=== PATIENT | female | born 1950 | race Caucasian/White ===

== ENCOUNTER 2021-03-20 12:24 | Emergency (ER) | payer OTHER, MEDICARE ==
[~2021-03-20] VITALS: Ht 160 cm; Wt 98.3 kg
[2021-03-20] MEDS ORDERED: NEOMY/BACITR/POLYMYXIN OINT PACKET. TP ONE (13:45)
[2021-03-20] MEDS ORDERED: ONDANSETRON ODT 4 MG TAB.RAPDIS. PO ONE (13:45)
--- NOTE | 2021-03-20 13:58 | PHYS DOC ---
Past Medical History Past Medical History: Asthma, CAD, Diabetes-Type II, Hypertension, Hypothyroid Past Surgical History: , Knee Replacement, Other Additional Past Surgical Histo: Rotator cuff surgery Smoking Status: Never Smoker Alcohol Use: None Drug Use: None General Adult EDM: Chief Complaint: LACERATION/AVULSION HPI: HPI: 71-year-old female presents to the emergency department status post mechanical fall from standing height onto pavement. Patient was brought to the ED by her daughter in POV. Patient reports that she struck the right side of her head on the pavement she denies LOC which was corroborated by her daughter who witnessed the fall. She also reports that during the fall she attempted to catch herself with her bilateral hands which she reports are both painful which is worse with movement. Before the fall she denies any dizziness or lightheadedness, post fall she reports that she feels mentally "foggy". She reports that she is nauseous and during patient interview she vomited 1 time. She denies chest pain, back pain, or abdominal pain. The patient is not on any blood thinning medications nor is she on a baby aspirin. Patient reports last tetanus was greater than is at least 10 years old. Review of Systems: Review of Systems: Constitutional: Denies fever or chills Eyes: Denies redness or eye pain HENT: Denies nasal congestion or epistaxis; reports right eyebrow and cheek pain Respiratory: Denies cough or shortness of breath Cardiovascular: Denies chest pain or palpitations GI: Denies abdominal pain, nausea, or vomiting : Denies dysuria or hematuria Musculoskeletal: Denies back pain or neck pain; reports pain to bilateral hands Integument: Reports bruising underneath right eye and right forehead abrasion/contusion Neurologic: Denies focal weakness or sensory changes Complete systems were reviewed and found to be within normal limits, except as documented in this note. Heart Score: C/O Chest Pain: N/A Current Medications: Current Medications Medications (Trade) Dose Ordered Sig/Catherine Start Time Stop Time Status Last Admin Dose Admin Neomycin/ Polymyxin/ Bacitracin (Triple Antibiotic Ointment) 1 pkt 1X ONCE 03/20/21 13:45 03/20/21 13:46 Ondansetron HCl (Zofran Odt) 4 mg 1X ONCE 03/20/21 13:45 03/20/21 13:46 Allergies: Allergies: Allergies Coded Allergies Type Severity Reaction Last Updated Verified peanut Allergy Severe 03/20/21 Yes Sulfa (Sulfonamide Antibiotics) Allergy Mild rash 03/20/21 Yes lisinopril Allergy Mild cough 03/20/21 Yes Physical Exam: PE: Constitutional: Well developed, well nourished, mild acute distress, non-toxic appearance HENT: Normocephalic, no evidence of murphy signs/raccoon eyes/hemotympanum, dentition feels grossly intact, there is a small 1 cm abrasion over the right lateral eyebrow with associated swelling, there is also associated swelling of the patient's upper lip on the right side, trachea is midline, no JVD Eyes: PERRL, EOMI, conjunctiva normal, no discharge, no nystagmus Neck: Normal range of motion, no tenderness, supple, denies cervical spine tenderness on palpation Lungs & Thorax: No respiratory distress, equal chest rise and fall, lung sounds clear to auscultation bilaterally, normal chest wall excursion bilaterally Abdomen: Soft, no tenderness; pelvis stable and nontender Skin: Warm, dry, no erythema, no rash Back: No tenderness, no CVA tenderness, patient does have at baseline significant kyphosis of upper thoracic spine Extremities: No tenderness, ROM intact, no edema, patient has 5/5 strength grossly in all extremities, she does report pain in both left and right hands, on palpation of bilateral anatomical snuffbox his pain is mildly exacerbated. Neurologic: Alert and oriented X 3, normal motor function, normal sensory function, no focal deficits noted Psychologic: Affect normal, judgment normal Current Patient Data: Vital Signs: Vital Signs Date Time Temp Pulse Resp B/P (MAP) Pulse Ox O2 Delivery O2 Flow Rate FiO2 03/20/21 12:49 97.9 59 16 166/73 (104) 98 Room Air 97.9 EKG: EKG: [] Radiology/Procedures: Radiology/Procedures: [] Impression: CT HEAD AND C-SPINE WO Clinical indications: Reason: pain s/p fall / Spl. Instructions: / History: NONCONTRAST HEAD CT COMPARISON: None available. Technique: Noncontrast axial cross sectional scanning of the head was performed. PQRS compliance Statement One or more of the following individualized dose reduction techniques were utilized for this study: 1. Automated exposure control 2. Adjustment of the mA and/or kV according to patient size 3. Use of iterative reconstruction technique Findings: There is a small 15 mm acute hyperdense subdural hematoma of the upper falx cerebri. No midline shift or significant mass effect is seen. No hydro cephalus is seen. No focal hypodense area or sulci effacement is seen to indicate an acute infarct or edema radiographically. No skull fracture or pneumocephalus is seen. No opacification of the mastoid sinuses or the middle ear cavities is seen. There is a small air-fluid level within the right maxillary sinus. The maxillary sinuses are not completely seen in this study. IMPRESSION: Small 13 mm acute subdural hematoma of the upper falx cerebri. No midline shift or mass effect. Small air-fluid level within the right maxillary sinus. This could be due to acute maxillary sinusitis or fracture if there is a history of facial trauma. CT STUDY OF THE CERVICAL SPINE WITHOUT CONTRAST TECHNIQUE: Noncontrast helical CT scanning of the cervical spine was performed. Multiplanar 2-D reconstructions were generated. FINDINGS: No acute fracture or discitis or lytic process is evident. Alignment is normal. No perching of facet joints is seen. Degenerative facet arthropathy is apparent. Spinous processes are intact. Nuchal ligament ossification is apparent. There is degenerative disc space narrowing and endplate spurring at C4-5 and C5-6 and C6-7 and C7-T1. IMPRESSION: No acute fracture. Degenerative cervical spondylosis. FOR INTERNAL CODING PURPOSES Critical result: Findings discussed with Dr. Gato García at 03/20/2021 3:00 PM. RESULT CODE: (C) Exam: CT maxillofacial without contrast INDICATION: Pain status post fall, abnormal head CT TECHNIQUE: Sequential axial images through the face obtained without IV contrast. Sagittal and coronal reformatted images were reconstructed from the axial data and reviewed. Exposure: One or more of the following in the visualized dose reduction techniques were utilized for this examination: 1. Automated exposure control 2. Adjustment of the MA and/or KV according to patient size 3. Use of iterative of reconstructive technique Comparisons: None FINDINGS: Partial visualization of parafalcine subdural hematoma anteriorly. Globes and intraorbital contents are normal. Minimal orbital blowout fracture involving the medial wall of the right orbit. There is trace fluid layering noted within the right maxillary sinus. Mild contusion in the soft tissues of the right cheek. No acute fracture. IMPRESSION: 1. Mild contusion in the subcutaneous fat of the right cheek. No underlying osseous abnormality. 2. Minimal orbital blowout fracture involving the medial wall the right orbit which is age indeterminant favored to be chronic. 3. Partial visualization of the parafalcine subdural hematoma Electronically signed by: Gutierrez Ledezma MD (03/20/2021 3:52 PM) [facility] Electronically signed by: Kin Carias MD (03/20/2021 3:03 PM) [id number] Course & Med Decision Making: Course & Med Decision Making 71-year-old female presents to the emergency department status post mechanical fall from standing height onto pavement. Patient reports head trauma but denies loss of consciousness which is verified by patient's daughter who witnessed the fall. While conversing with the patient in the emergency department she reported feeling mentally "foggy" as well as vomiting 1 time. The patient is not on blood thinning medications. Due to patient's baseline kyphosis as well as her age and post fall vomiting a CT head and C-spine will be taken. Bilateral hand x-rays will also be taken. Patient also provided with pain and nausea medications as well as an updated Tdap. Head CT results demonstrated 15 mm hyperdense acute subdural hematoma. In consultation with radiology plan for additional CT of the facial bones. CT facial bone CT demonstrates mild contusion of the subcutaneous fat on the right cheek with no evidence of acute osseous injury. Due to acute subdural hematoma patient to be transferred out of hospital to facility with current neurosurgical capabilities. [place] neurosurgeon- Dr. Dhaliwal is currently on vacation and not available. Labs obtained and posted to chart. Patient requiring transfer to facility with neurosurgery. Family request . transfer center utilized. CT imaging clouded to . Patient requiring admission for further evaluation and treatment. Discussed with Dr. Bull Jones () who is in agreement with admission. Discussed findings and plan with patient and family, who acknowledge understanding and agreement. Georgina Disclaimer: Georgina Disclaimer: This electronic medical record was generated, in whole or in part, using a voice recognition dictation system. Departure Departure Impression: Primary Impression: Subdural hemorrhage Disposition: [address] [place] [address] (NAMAN Jones accepting) Condition: GUARDED Critical Care Time Critical care time was 30 minutes which includes time at bedside, spent in discussion of patient's care with specialists and/or family members, with interpretation of laboratory and/or radiological studies and is exclusive of procedures. GATO GARCÍA DO Mar 20, 2021 13:58
[2021-03-20] MEDS ORDERED: fentaNYL PF VIAL 100 MCG/2 ML VIAL IM ONE (14:00)
[2021-03-20] MEDS ORDERED: DIPH,PERTUSS(ACELL),TET VAC/PF 0.5 ML SYRINGE. VAX IM ONE (14:00)
--- NOTE | 2021-03-20 14:08 | RAD ---
EXAM: 3 views both hands DATE: 03/20/2021 1:52 PM INDICATION: Reason: pain s/p fall / Spl. Instructions: / History: . COMPARISON: No Prior FINDINGS: Right hand: Decreased bone mineral density. No evidence of acute fracture or dislocation. Scattered I P joint space narrowing and small proliferative changes. Degenerative changes are also seen at the an d thumb, index and long finger MCP joints. Left hand: Decreased bone mineral density. No evidence of acute fracture or dislocation. Scattered IP joint degenerative changes. Mild soft tissue swelling about the left wrist IMPRESSION: Within the constraints of osteopenia, no evidence for acute fracture or dislocation. If there is pers istent clinical concern for fracture, follow-up radiographs in 10-14 days is recommended. Electronically signed by: Stewart Izaguirre MD (03/20/2021 2:05 PM) [id number]
--- NOTE | 2021-03-20 15:06 | RAD ---
CT HEAD AND C-SPINE WO Clinical indications: Reason: pain s/p fall / Spl. Instructions: / History: NONCONTRAST HEAD CT COMPARISON: None available. Technique: Noncontrast axial cross sectional scanning of the head was performed. PQRS compliance Statement One or more of the following individualized dose reduction techniques were utilized for this study: 1. Automated exposure control 2. Adjustment of the mA and/or kV according to patient size 3. Use of iterative reconstruction technique Findings: There is a small 15 mm acute hyperdense subdural hematoma of the upper falx cerebri. No mid line shift or significant mass effect is seen. No hydrocephalus is seen. No focal hypodense area or s ulci effacement is seen to indicate an acute infarct or edema radiographically. No skull fracture or pneumocephalus is seen. No opacification of the mastoid sinuses or the middle ear cavities is seen. There is a small air-fluid level within the right maxillary sinus. The maxillary sinuses are not comp letely seen in this study. IMPRESSION: Small 13 mm acute subdural hematoma of the upper falx cerebri. No midline shift or mass e ffect. Small air-fluid level within the right maxillary sinus. This could be due to acute maxillary sinusiti s or fracture if there is a history of facial trauma. CT STUDY OF THE CERVICAL SPINE WITHOUT CONTRAST TECHNIQUE: Noncontrast helical CT scanning of the cervical spine was performed. Multiplanar 2-D recon structions were generated. FINDINGS: No acute fracture or discitis or lytic process is evident. Alignment is normal. No perching of facet joints is seen. Degenerative facet arthropathy is apparent. Spinous processes are intact. N uchal ligament ossification is apparent. There is degenerative disc space narrowing and endplate spur ring at C4-5 and C5-6 and C6-7 and C7-T1. IMPRESSION: No acute fracture. Degenerative cervical spondylosis. FOR INTERNAL CODING PURPOSES Critical result: Findings discussed with Dr. Gato Falcon at 03/20/2021 3:00 PM. RESULT CODE: (C) Electronically signed by: Kin Carias MD (03/20/2021 3:03 PM) [id number]
[2021-03-20] MEDS ORDERED: fentaNYL PF VIAL 100 MCG/2 ML VIAL IV ONE (15:45)
--- NOTE | 2021-03-20 15:54 | RAD ---
Exam: CT maxillofacial without contrast INDICATION: Pain status post fall, abnormal head CT TECHNIQUE: Sequential axial images through the face obtained without IV contrast. Sagittal and lea l reformatted images were reconstructed from the axial data and reviewed. Exposure: One or more of the following in the visualized dose reduction techniques were utilized for this examination: 1. Automated exposure control 2. Adjustment of the MA and/or KV according to patient size 3. Use of iterative of reconstructive technique Comparisons: None FINDINGS: Partial visualization of parafalcine subdural hematoma anteriorly. Globes and intraorbital contents are normal. Minimal orbital blowout fracture involving the medial wa ll of the right orbit. There is trace fluid layering noted within the right maxillary sinus. Mild contusion in the soft tissues of the right cheek. No acute fracture. IMPRESSION: 1. Mild contusion in the subcutaneous fat of the right cheek. No underlying osseous abnormality. 2. Minimal orbital blowout fracture involving the medial wall the right orbit which is age indetermi nant favored to be chronic. 3. Partial visualization of the parafalcine subdural hematoma Electronically signed by: Gutierrez Ledezma MD (03/20/2021 3:52 PM) [id number]
[2021-03-20 16:28] LABS: BASO # 0.2 x10^3/uL (0.0-0.2); BASO % 1 % (0-3); EOS # 0.3 x10^3/uL (0.0-0.7); EOS % 2 % (0-3); HEMATOCRIT 39.6 % (36.0-47.0); HEMOGLOBIN 13.2 g/dL (12.0-15.5); LYMPH # 1.6 x10^3/uL (1.0-4.8); LYMPH % 12 % (24-48); MEAN CORPUSCULAR HEMOGLOBIN 30 pg (25-35); MEAN CORPUSCULAR HGB CONC 33 g/dL (31-37); MEAN CORPUSCULAR VOLUME 91 fL (79-100); MONO # 0.4 x10^3/uL (0.0-1.1); MONO % 3 % (0-9); NEUT # 10.6 x10^3/uL (1.8-7.7); NEUT % 82 % (31-73); PLATELET COUNT 285 x10^3/uL (140-400); RED BLOOD COUNT 4.37 x10^6/uL (3.50-5.40); RED CELL DISTRIBUTION WIDTH 13.8 % (11.5-14.5)
[2021-03-20 16:37] LABS: CALCIUM 8.7 mg/dL (8.5-10.1); CREATININE 0.8 mg/dL (0.6-1.0); GFR 71.1; POTASSIUM 3.9 mmol/L (3.5-5.1); PROTHROMBIN TIME PATIENT 13.6 SEC (11.7-14.0)
[2021-03-20 16:44] LABS: ALBUMIN 3.9 g/dL (3.4-5.0); ALBUMIN/GLOBULIN RATIO 1.1 (1.0-1.7); MAGNESIUM 1.8 mg/dL (1.8-2.4); TOTAL BILIRUBIN 1.3 mg/dL (0.2-1.0); TOTAL PROTEIN 7.3 g/dL (6.4-8.2)
[2021-03-20 17:10] VITALS: BP 174/74
[2021-03-20] MEDS ORDERED: ONDANSETRON PF 4 MG/2 ML VIAL. IVP ONE (17:15)
[2021-03-20] MEDS ORDERED: LABETALOL 20 MG/4 ML DISP.SYRIN. IVP ONE (17:30)
== END 2021-03-20 19:10 | disposition short-term general hospital (02) ==
LOC: ER 12:24
DX: S06.5X0A Traumatic subdural hemorrhage without loss of consciousness, initial encounter (principal); Z20.822 Contact with and (suspected) exposure to COVID-19; J45.909 Unspecified asthma, uncomplicated; E11.9 Type 2 diabetes mellitus without complications; I10 Essential (primary) hypertension; E03.9 Hypothyroidism, unspecified; I25.10 Atherosclerotic heart disease of native coronary artery without angina pectoris; Z91.018 Allergy to other foods; Z88.2 Allergy status to sulfonamides; Z88.6 Allergy status to analgesic agent; W18.39XA Other fall on same level, initial encounter; Y93.89 Activity, other specified; Y92.89 Other specified places as the place of occurrence of the external cause; Y99.8 Other external cause status
CPT/HCPCS: 36415; 70450; 70486; 72125; 73130; 80053; 83735; 85025; 85610; 85730; 87426; 90471; 90715; 96374; 96375; 96376; 99291; J2405; J3010; U0003; U0005